=== PATIENT | female | born 1970 | race Hispanic/Latino ===

== ENCOUNTER 2017-08-16 04:34 | Emergency (ER) | payer SELFPAY | END 2017-08-16 05:38 | disposition home or self-care (01) | LOC: ERS 04:34 | DX: B37.3 Candidiasis of vulva and vagina (principal); I10 Essential (primary) hypertension | CPT/HCPCS: 99283 ==

== ENCOUNTER 2017-10-09 13:19 | Emergency (ER) | payer SELFPAY ==
[2017-10-09 13:45] LABS: #Eosinphils 0.3 thou/uL (0.0-0.7); #Lymphocytes 3.2 thou/uL (1.20-3.40); #Monocytes 0.8 thou/uL (0.11-0.59); #Neutrophils 6.8 thou/uL (1.40-6.50); %Basophils 0.1 % (0.0-1.0); %Eosinophils 2.7 % (0.0-10.0); %Lymphocytes 29.1 % (21.0-51.0); %Monocytes 7.5 % (0.0-10.0); %Neutrophils 60.6 % (42.0-75.0); Hemoglobin 11.9 g/dL (12.0-16.0); Mean Corpuscular HGB CONC 34.2 g/dL (32.0-36.0); Mean Corpuscular Hemoglobin 28.6 pg (27.0-31.0); Mean Corpuscular Volume 83.8 fl (81.0-99.0); Mean Platelet Volume 6.9 fL (7.4-10.4); Platelet Count 270 thou/uL (130-400); RBC Distribution Width 12.5 % (11.5-14.5); Red Blood Cell (RBC) Count 4.15 mill/uL (4.20-5.40); White Blood Cell (WBC) Count 11.1 thou/uL (4.8-10.8)
[2017-10-09 14:11] LABS: ALT (SGPT) 16 U/L (8-55); AST (SGOT) 13 U/L (5-34); Albumin 3.7 g/dL (3.5-5.0); Alkaline Phosphatase 86 U/L (40-150); Anion Gap 10 mmol/L (10-20); BUN (Urea Nitrogen) 14 mg/dL (7.0-18.7); Bilirubin, Total 0.3 mg/dL (0.2-1.2); Calc. Creatinine Clearance 0 mL/min (70-130); Calcium 8.6 mg/dL (7.8-10.44); Carbon Dioxide 25 mmol/L (22-29); Chloride 107 mmol/L (98-107); Estimated GFR-MDRD Greater than 90; Globulin 3.6 g/dL (2.4-3.5); Glucose 98 mg/dL (70-105); Potassium 3.9 mmol/L (3.5-5.1); Protein, Total 7.3 g/dL (6.0-8.3); Sodium 138 mmol/L (136-145)
[2017-10-09 14:19] LABS: Bilirubin Negative (Negative); Blood, Urine Negative (Negative); Clarity CLEAR (Clear); Glucose, Urine (Dipstick) Negative (Negative); Leukocyte Negative (Negative); Nitrite Negative (Negative); Protein, Urine (Dipstick) Negative (Neg-Trace); Specific Gravity, Urine 1.028 (1.002-1.036)
[2017-10-09] MEDS ORDERED: Fentanyl 100 MCG/2 ML VIAL ONE (15:11)
[2017-10-09 16:07] LABS: Pregnancy Test - Urine (BHCG) Negative (Negative)
[2017-10-09 16:08] LABS: Pregu Control Background? CLEAR/WHITE (CLR/WHITE); Pregu Control Bar Appear? YES (CONTROL BAR); Specific Gravity 1.028 (1.002-1.036)
--- NOTE | 2017-10-09 16:46 | CT ---
CT ABDOMEN AND PELVIS WITHOUT CONTRAST 10/09/17 HISTORY: Right flank pain and history of kidney stones. FINDINGS: The absence or oral and IV contrast reduces the sensitivity of the exam particularly for evaluation o f solid organs and bowel. The lung bases are clear. The liver demonstrates diffuse echogenicity compared to the spleen consiste nt with fatty infiltration. No calcified gallstones are seen. A normal appearing appendix is present. No free air or free fluid is seen in the abdomen or pelvis. There are few punctate calculi in the right kidney. No calculi seen in the left kidney, either ureter or the urinary bladder. No hydroureteronephrosis seen on either side. There is a 4 mm low density le gustavo in the right renal cortex likely a cyst. There is sigmoid diverticulosis. There is mild pericolonic inflammatory change adjacent to the sigmoi d colon and the pelvis. The uterus and ovaries are present. There is a 6 x 4 x 4.5 cm cystic mass arising from the left ovary . There are mild degenerative changes in the spine. No aneurysmal dilation of the abdominal aorta is se en. IMPRESSION: 1. Nonobstructing punctate right renal calculi. 2. Fatty liver. 3. Sigmoid diverticulosis with probable diverticulitis. 4. Left ovarian cystic mass measuring 6 x 4 x 4.5 cm. This could be evaluated with a pelvic ultr asound on a nonemergent basis. POS: POLINA
== END 2017-10-09 17:26 | disposition home or self-care (01) ==
LOC: ERS 13:19
DX: K57.92 Diverticulitis of intestine, part unspecified, without perforation or abscess without bleeding (principal); I10 Essential (primary) hypertension; Z87.442 Personal history of urinary calculi
CPT/HCPCS: 36415; 74176; 80053; 81003; 81025; 85025; 96361; 96374; J3010

== ENCOUNTER 2018-04-20 23:01 | Emergency (ER) | payer SELFPAY ==
[2018-04-20 23:27] LABS: #Eosinphils 0.2 thou/uL (0.0-0.7); #Lymphocytes 3.5 thou/uL (1.20-3.40); #Monocytes 0.6 thou/uL (0.11-0.59); %Basophils 0.1 % (0.0-1.0); %Eosinophils 2.1 % (0.0-10.0); %Monocytes 5.3 % (0.0-10.0); %Neutrophils 61.5 % (42.0-75.0); Mean Corpuscular HGB CONC 34.2 g/dL (32.0-36.0); Mean Corpuscular Hemoglobin 28.1 pg (27.0-31.0); Mean Corpuscular Volume 82.2 fL (78.0-98.0); Mean Platelet Volume 7.3 fL (7.4-10.4); Platelet Count 316 thou/uL (130-400); RBC Distribution Width 12.8 % (11.5-14.5); Red Blood Cell (RBC) Count 4.26 mill/uL (4.20-5.40); White Blood Cell (WBC) Count 11.3 thou/uL (4.8-10.8)
[2018-04-20 23:39] LABS: Bilirubin Negative (Negative); Blood, Urine Negative (Negative); Clarity CLEAR (Clear); Glucose, Urine (Dipstick) Negative (Negative); Leukocyte Negative (Negative); Nitrite Negative (Negative); Protein, Urine (Dipstick) Negative (Neg-Trace); Specific Gravity, Urine 1.031 (1.002-1.036); Urobilinogen 0.2 mg/dL (0.2-1.0); pH, Urine 5.5 (5.0-9.0)
[2018-04-20 23:48] LABS: ALT (SGPT) 14 U/L (8-55); AST (SGOT) 14 U/L (5-34); Albumin 4.1 g/dL (3.5-5.0); Alkaline Phosphatase 89 U/L (40-150); Anion Gap 13 mmol/L (10-20); BUN (Urea Nitrogen) 18 mg/dL (7.0-18.7); Bilirubin, Total 0.2 mg/dL (0.2-1.2); Calc. Creatinine Clearance 0 mL/min (70-130); Calcium 9.5 mg/dL (7.8-10.44); Carbon Dioxide 23 mmol/L (22-29); Chloride 105 mmol/L (98-107); Estimated GFR-MDRD 79; Globulin 3.9 g/dL (2.4-3.5); Glucose 113 mg/dL (70-105); Potassium 3.8 mmol/L (3.5-5.1); Sodium 137 mmol/L (136-145)
[2018-04-21 00:50] LABS: Pregnancy Test - Urine (BHCG) Negative (Negative); Pregu Control Background? CLEAR/WHITE (CLR/WHITE); Pregu Control Bar Appear? YES (CONTROL BAR); Specific Gravity 1.031 (1.002-1.036)
[2018-04-21] MEDS ORDERED: Ketorolac Tromethamine 30 MG/ML VIAL ONE (02:06)
--- NOTE | 2018-04-21 09:39 | ULT ---
PRELIMINARY REPORT/[facility]/EMERGENTY AFTER-HOURS PROCEDURE US Pelvis Complete, Transabdominal and US Pelvis, Transvaginal EXAM DATE/TIME: 04/21/2018 1:34 AM CLINICAL HISTORY: 48 years old, female; Pain; Pelvic pain; Prior surgery; Surgery date: 6+ months; Surgery type: Csecti on TECHNIQUE: Real-time transabdominal and transvaginal pelvic ultrasound (complete) with image documentation. [place]illa svaginal imaging was used for better evaluation of the endometrium and adnexa. COMPARISON: No relevant prior studies available. FINDINGS: Uterus/cervix: There are 2 uterine fibroids, the larger of which measures 1.2 cm. Trace fluid in the endometrial cavity. Normal endometrial stripe thickness. Right adnexa: 1.6 cm dominant follicle the right ovary. Right ovary otherwise normal with normal Dopp ler signal. Left adnexa: There are 2 left ovarian cysts, the larger of which measures 3 cm. Left ovary otherwise normal with normal Doppler signal. Free fluid: Physiologic amount of free fluid in the pelvis. IMPRESSION: 1. There are 2 left ovarian cysts, the larger of which measures 3 cm. 2. There are 2 uterine fibroids, the larger of which measures 1.2 cm. Thank you for allowing us to participate in the care of your patient. Dictated and Authenticated by: Nabil Mercado MD 04/21/2018 3:32 AM Central Time ([place] & [place]) FINAL REPORT TRANSABDOMINAL AND TRANSVAGINAL PELVIC ULTRASOUND WITH FOSTER SCALE AND COLOR FLOW AND SPECTRAL DOPPLER IMAGING: Date: 04/21/18 FINDINGS/IMPRESSION: I agree with the preliminary report given by Jaclyn. POS: POLINA
== END 2018-04-21 04:20 | disposition home or self-care (01) ==
LOC: ERS 23:01
DX: R10.30 Lower abdominal pain, unspecified (principal); I10 Essential (primary) hypertension
CPT/HCPCS: 36415; 76856; 80053; 81003; 81025; 85025; 93976; 96372; J1885

== ENCOUNTER 2019-07-19 20:07 | Inpatient (IN) | payer SELFPAY ==
[~2019-07-19 20:07] MED LIST: Iopamidol 370 76% 100 ML VIAL ONE
[2019-07-19 20:39] LABS: #Eosinphils 0.2 thou/uL (0.0-0.7); #Lymphocytes 3.6 thou/uL (1.20-3.40); #Monocytes 0.8 thou/uL (0.11-0.59); #Neutrophils 10.8 thou/uL (1.40-6.50); %Basophils 0.2 % (0.0-1.0); %Eosinophils 1.5 % (0.0-10.0); %Monocytes 5.1 % (0.0-10.0); %Neutrophils 70.2 % (42.0-75.0); Hemoglobin 13.3 g/dL (12.0-16.0); Mean Corpuscular HGB CONC 33.5 g/dL (32.0-36.0); Mean Corpuscular Hemoglobin 28.2 pg (27.0-31.0); Mean Corpuscular Volume 84.3 fL (78.0-98.0); Mean Platelet Volume 8.3 fL (7.4-10.4); Platelet Count 304 thou/uL (130-400); RBC Distribution Width 14.2 % (11.5-14.5); Red Blood Cell (RBC) Count 4.72 mill/uL (4.20-5.40); White Blood Cell (WBC) Count 15.4 thou/uL (4.8-10.8)
[2019-07-19] MEDS ORDERED: Morphine 4 MG/ML VIAL ONE ×2 (20:40→21:38)
[2019-07-19] MEDS ORDERED: Ondansetron PF 4 MG/2 ML Vial ONE (20:40)
[2019-07-19 21:01] LABS: ALT (SGPT) 17 U/L (8-55); AST (SGOT) 11 U/L (5-34); Albumin 4.2 g/dL (3.5-5.0); Alkaline Phosphatase 81 U/L (40-110); Anion Gap 14 mmol/L (10-20); BUN (Urea Nitrogen) 16 mg/dL (7.0-18.7); Bilirubin, Total 0.4 mg/dL (0.2-1.2); Calc. Creatinine Clearance 0 mL/min (70-130); Calcium 9.2 mg/dL (7.8-10.44); Carbon Dioxide 21 mmol/L (22-29); Chloride 105 mmol/L (98-107); Estimated GFR-MDRD 72; Globulin 3.8 g/dL (2.4-3.5); Glucose 122 mg/dL (70-105); Lipase 34 U/L (8-78); Potassium 3.7 mmol/L (3.5-5.1); Sodium 136 mmol/L (136-145)
--- NOTE | 2019-07-19 21:12 | CT ---
CT Abdomen Pelvis W Con: 07/19/2019 8:38 PM CLINICAL INFORMATION: Severe abdominal pain with history of kidney stones COMPARISON: 10/09/2017 TECHNIQUE: Multiple contiguous axial images were obtained and a CT of the abdomen and pelvis with IV contrast. C oronal and sagittal reformats were performed. FINDINGS: Lower Chest: within normal limits. Abdomen: Liver: within normal limits. Bile Ducts: Normal caliber. Gallbladder: No calcified gallstones. Normal caliber wall. Pancreas: within normal limits. Spleen: within normal limits. Adrenals: within normal limits. Kidneys: Small right renal cyst Pelvis: Reproductive Organs: There is a stable cyst in the left ovary measuring 4.6 cm in size. Ureters: within normal limits. Bladder: within normal limits. Peritoneum: No ascites or free air, no fluid collection. Bowel: Normal caliber. Scattered diverticula in the sigmoid colon. Stranding changes are seen surroun ding the sigmoid colon consistent with acute diverticulitis. Normal appendix. Mesentery and Retroperitoneum: No enlarged mesenteric or retroperitoneal lymph nodes. Vessels: Normal. Abdominal Wall: within normal limits. Bones: Within normal limits IMPRESSION: 1. Acute diverticulitis 2. Left ovarian cyst. 3. Right renal cyst
[2019-07-19 21:16] LABS: Bilirubin Negative (Negative); Blood, Urine Negative (Negative); Clarity Clear (Clear); Glucose, Urine (Dipstick) Normal (Negative); Leukocyte Negative Leu/uL (Negative); Nitrite Negative (Negative); Protein, Urine (Dipstick) 10 mg/dL (Neg-Trace); Urobilinogen Normal mg/dL (Less than 2)
[2019-07-19 21:18] LABS: Pregnancy Test - Urine (BHCG) Negative (Negative); Pregu Control Background? CLEAR/WHITE (CLR/WHITE); Pregu Control Bar Appear? YES (CONTROL BAR); Specific Gravity 1.025 (1.002-1.036)
[2019-07-19] MEDS ORDERED: metroNIDAZOLE 500 MG/100 ML BAG ONE (21:26)
--- NOTE | 2019-07-19 22:53 | HP ---
PRIMARY CARE PROVIDER: [facility] [place], [place]. CHIEF COMPLAINT: Abdominal pain. HISTORY OF PRESENT ILLNESS: This is a 49-year-old female, who presents to [facility] Emergency Department complaining of approximately 2- to 3-day history of generalized abdominal pain mainly localized into the right lower quadrant, rating at 10/10 and cramping. Patient denied any trauma injury, family members with similar symptoms, or recent travel history. Patient admitted to associated nausea and vomiting x4 episodes with associated chills and low-grade fever, not documented or taken at home. Patient took [id number] pain medication without relief of her symptoms. Patient denied any hematemesis, melena, or diarrhea. Patient denied any dysuria, hematuria, recent surgical procedures, or changes to her dietary regimen. In the emergency room, patient underwent general evaluation, including CT imaging of the abdomen and pelvis showing evidence of acute diverticulitis. Patient received IV Levaquin and Flagyl in addition to morphine sulfate and IV fluids. Patient also received Zofran with mild relief of her nausea. PAST MEDICAL HISTORY: 1. Hypertension. 2. History of renal lithiasis. PAST SURGICAL HISTORY: Status post section x3. CURRENT MEDICATION: Patient is unsure of her medication regimen and will need to be obtained by the family. ALLERGIES: NO KNOWN DRUG ALLERGIES. FAMILY HISTORY: No inheritable diseases per patient report. SOCIAL HISTORY: Resides in the [place], [place] area. No current alcohol, tobacco, or illicit drug use. Functional of all activities of daily living. REVIEW OF SYSTEMS: CONSTITUTIONAL: Negative for weight loss or gain, ability to conduct usual activities. SKIN: Negative for rash, itching. EYES: Negative for double vision, pain. ENT/MOUTH: Negative for nose bleeding, neck stiffness, pain, tenderness. CARDIOVASCULAR: Negative for palpitations, dyspnea on exertion, orthopnea. RESPIRATORY: Negative for shortness of breath, wheezing, cough, hemoptysis, fever or night sweats. GASTROINTESTINAL: Negative for poor appetite, abdominal pain, heartburn, nausea, vomiting, constipation, or diarrhea. GENITOURINARY: Negative for urgency, frequency, dysuria, nocturia. MUSCULOSKELETAL: Negative for pain, swelling. NEUROLOGIC/PSYCHIATRIC: Negative for anxiety, depression. ALLERGY/IMMUNOLOGIC: Negative for skin rash, bleeding tendency. Otherwise, negative, except as stated per HPI. PHYSICAL EXAMINATION: VITAL SIGNS: On admission, blood pressure 157/99, pulse 110, respiratory rate 19, temperature 99.2 degrees Fahrenheit, and O2 saturation 98% on room air. GENERAL APPEARANCE: This is a 49-year-old female, alert and oriented x3, pleasant, responsive, in mild distress. HEENT: Pupils are equal, round, and reactive to light and accommodation. Extraocular muscles are intact. No scleral icterus. Mild conjunctival injection. Nares are patent. OP is clear. Teeth in fair repair. NECK: Supple. No cervical adenopathy. No thyromegaly. No carotid bruits. No JVD appreciated. Cervical spine with full active and passive range of motion. No meningeal signs noted. CHEST: Lungs are clear to auscultation bilaterally. CARDIOVASCULAR: S1, S2 with tachycardia. No murmur, rub, or gallop appreciated. ABDOMEN: Obese with tenderness to palpation diffusely. No rebound or guarding noted. Bowel sounds are positive in all 4 quadrants. No palpable mass. EXTREMITIES: Warm and dry with fair turgor. No clubbing, cyanosis, or asymmetric edema appreciated. Pulses palpable distally at the dorsalis pedis, posterior tibial, and popliteal arteries bilaterally. Capillary refill less than 2 seconds. NEUROLOGIC: Cranial nerves 2 through 12 are grossly intact. No focal or lateralizing signs appreciated. PERTINENT LABORATORY AND X-RAY FINDINGS: Sodium 136, potassium 3.7, chloride 105, CO2 of 21, BUN 16, creatinine 0.84, estimated GFR 72, glucose 122, lactic acid level 1.4, and calcium 9.2. LFTs within normal limits. Lipase 34. CBC showed a white blood cell count of 15.4, hemoglobin 13, hematocrit 40, and platelet count 304 with 70% neutrophils. Urinalysis negative. Urine, beta hCG negative dated 07/19/2019. CT of the abdomen and pelvis dated 07/19/2019, showed acute diverticulitis in the sigmoid colon. ASSESSMENT/PLAN: 1. Acute diverticulitis. Patient will be admitted to the medical floor. We will continue Levaquin 750 mg IV q.24 hours with additional Flagyl 500 mg IV q.8 hours. Continue intravenous normal saline 125 mL/h. Pain control with Toradol 30 mg IV q.6 hours. Clear liquid diet. Continue serial abdominal exams. 2. Nausea and vomiting secondarily to acute diverticulitis. We will continue IV fluids as outlined previously. Antiemetics with Zofran 4 mg IV q.6 hours p.r.n. Clear liquids as tolerated. 3. Abdominal pain, generalized. Secondarily to acute diverticulitis. See #1 above for management. 4. Sinus tachycardia secondarily to acute diverticulitis. We will continue IV fluids as outlined previously. Continue general supportive management. 5. Prophylaxis. SCDs while in bed. Pepcid 20 mg IV b.i.d. 6. Code status. Full. Surrogate medical decision maker is patient's spouse. Job ID: [id number]
[2019-07-19] MEDS ORDERED: Ondansetron ODT 4 MG TAB SL PRN (23:08)
[2019-07-19] MEDS ORDERED: Ondansetron PF 4 MG/2 ML Vial IVP PRN ×2 (23:08→23:13)
[2019-07-19] MEDS ORDERED: Morphine 4 MG/ML VIAL SLOW IVP PRN (23:09)
[2019-07-19] MEDS ORDERED: Ondansetron ODT 4 MG TAB PO PRN (23:13)
[2019-07-19] MEDS ORDERED: Acetaminophen 500 MG TAB PO PRN (23:13)
[2019-07-19] MEDS: Sodium Chloride 0.9% 1,000 ML IV SCH ×2 (23:28→23:39)
[2019-07-19] MEDS ORDERED: Ketorolac Tromethamine 30 MG/ML VIAL IVP SCH (23:30)
[2019-07-19 23:51] VITALS: BMI 33.4
[2019-07-20] MEDS: Sodium Chloride 0.9% 1,000 ML IV SCH ×4 (00:51→22:38)
[2019-07-20] MEDS: metroNIDAZOLE 500 MG in Premix Bag 1 BAG IVPB SCH ×3 (04:59→20:21)
[2019-07-20] MEDS: Ketorolac Tromethamine 30 MG/ML VIAL IVP SCH ×4 (04:59→22:38)
[2019-07-20 05:27] LABS: Band 13 % (5-11); Hemoglobin 11.1 g/dL (12.0-16.0); Lymphocytes 18 % (21-51); MDiff Complete? YES; Mean Corpuscular HGB CONC 32.4 g/dL (32.0-36.0); Mean Corpuscular Hemoglobin 27.3 pg (27.0-31.0); Mean Corpuscular Volume 84.3 fL (78.0-98.0); Mean Platelet Volume 8.2 fL (7.4-10.4); Monocytes 4 % (0-10); Neutrophil 65 % (42-75); Platelet Count 232 thou/uL (130-400); Platelet Morphology Comment Appears Adequate; RBC Distribution Width 13.9 % (11.5-14.5); Red Blood Cell (RBC) Count 4.06 mill/uL (4.20-5.40); White Blood Cell (WBC) Count 11.2 thou/uL (4.8-10.8)
[2019-07-20 05:44] LABS: ALT (SGPT) 13 U/L (8-55); AST (SGOT) 10 U/L (5-34); Albumin 3.4 g/dL (3.5-5.0); Alkaline Phosphatase 69 U/L (40-110); Anion Gap 9 mmol/L (10-20); BUN (Urea Nitrogen) 14 mg/dL (7.0-18.7); Bilirubin, Total 0.3 mg/dL (0.2-1.2); Calc. Creatinine Clearance 138 mL/min (70-130); Carbon Dioxide 25 mmol/L (22-29); Chloride 108 mmol/L (98-107); Estimated GFR-MDRD Greater than 90; Glucose 97 mg/dL (70-105); Potassium 3.9 mmol/L (3.5-5.1); Protein, Total 6.4 g/dL (6.0-8.3); Sodium 138 mmol/L (136-145)
[2019-07-20] MEDS ORDERED: metroNIDAZOLE 500 MG in Premix Bag 1 BAG IVPB SCH (06:00)
[2019-07-20] MEDS: Famotidine/PF 20 mg/2ml Vial SLOW IVP SCH ×2 (07:56→20:22)
[2019-07-20] MEDS ORDERED: FLU VACC QS2019-20(6MOS UP)/PF 60 MCG/0.5 ML SYRINGE IM ONE (09:00)
--- NOTE | 2019-07-20 10:59 | PDOC.HOSPP ---
- Subjective Encounter Date: 07/20/19 Encounter Time: 10:57 Subjective: mild to moderate LLQ pain - Objective Vital Signs & Weight: Vital Signs (12 hours) Temp Pulse Resp BP BP Pulse Ox 07/20/19 07:56 95 07/20/19 07:51 97.9 F 69 17 109/67 95 07/20/19 04:55 97.9 F 77 16 118/77 92 L 07/20/19 00:03 95 07/19/19 23:49 98.6 F 84 18 146/91 H 94 L Weight Weight 171 lb 3.2 oz Result Diagrams: 07/20/19 04:49 07/20/19 04:49 Hospitalist ROS - Medication Medications: Active Medications Generic Name Dose Route Start Last Admin Trade Name Sachi PRN Reason Stop Dose Admin Famotidine 20 mg 07/20/19 09:00 07/20/19 07:56 Pepcid SLOW IVP 20 mg Q12HR NATALIE Administration Sodium Chloride 1,000 mls @ 120 mls/hr 07/19/19 23:08 07/20/19 00:51 Normal Saline 0.9% IV 07/20/19 11:00 Not Given .Q8H20M NATALIE Metronidazole 500 mg/ Device 100 mls @ 100 mls/hr 07/20/19 06:00 07/19/19 23: 59 IVPB 07/20/19 11:00 Not Given Q8HR NATALIE Metronidazole 500 mg/ Device 100 mls @ 100 mls/hr 07/20/19 06:00 07/20/19 04: 59 IVPB 100 mls Q8HR NATALIE Administration Sodium Chloride 1,000 mls @ 125 mls/hr 07/19/19 23:13 07/20/19 07:56 Normal Saline 0.9% IV 1,000 mls .Q8H NATALIE Administration Ketorolac Tromethamine 30 mg 07/20/19 06:00 07/20/19 04:59 Toradol IVP 07/25/19 06:01 30 mg Q6HR NATALIE Administration - Exam General Appearance: awake alert Neck: supple, no JVD Heart: RRR, no murmur Respiratory: CTAB Gastrointestinal: soft, normal bowel sounds, tender to palpation Gastrointestinal - other findings: in LLQ Extremities: no edema Hosp A/P (1) Diverticulitis large intestine Code(s): K57.32 - DVTRCLI OF LG INT W/O PERFORATION OR ABSCESS W/O BLEEDING Status: Acute Qualifiers: Diverticulitis bleeding: without bleeding Diverticulitis complication: with perforation and abscess Qualified Code(s): K57.20 - Diverticulitis of large intestine with perforation and abscess without bleeding (2) Abdominal pain Code(s): R10.9 - UNSPECIFIED ABDOMINAL PAIN Status: Acute Qualifiers: Abdominal location: left lower quadrant Qualified Code(s): R10.32 - Left lower quadrant pain (3) HTN (hypertension) Code(s): I10 - ESSENTIAL (PRIMARY) HYPERTENSION Status: Chronic Qualifiers: Hypertension type: essential hypertension Qualified Code(s): I10 - Essential (primary) hypertension - Plan cont iv quinalone/metranidazole cont analgesia PAOLA
[2019-07-21] MEDS: Sodium Chloride 0.9% 1,000 ML IV SCH ×3 (05:03→23:59)
[2019-07-21] MEDS: Ketorolac Tromethamine 30 MG/ML VIAL IVP SCH ×4 (05:03→23:57)
[2019-07-21] MEDS: metroNIDAZOLE 500 MG in Premix Bag 1 BAG IVPB SCH ×3 (05:04→22:50)
[2019-07-21] MEDS: Famotidine/PF 20 mg/2ml Vial SLOW IVP SCH ×2 (08:38→21:08)
--- NOTE | 2019-07-21 13:30 | PDOC.HOSPP ---
- Subjective Encounter Date: 07/21/19 Encounter Time: 12:00 Subjective: mild abd pain, mroe generalized and not localized, on CLD. afebrile, no wbcs. - Objective Vital Signs & Weight: Vital Signs (12 hours) Temp Pulse Resp BP Pulse Ox 07/21/19 11:31 98.7 F 71 16 142/87 H 95 07/21/19 08:00 93 L 07/21/19 07:27 98.2 F 76 18 129/77 93 L Weight Weight 171 lb 3.2 oz I&O: 07/20/19 07/21/19 07/22/19 06:59 06:59 06:59 Intake Total 1905 Balance 1905 Result Diagrams: 07/20/19 04:49 07/20/19 04:49 Hospitalist ROS - Medication Medications: Active Medications Generic Name Dose Route Start Last Admin Trade Name Freq PRN Reason Stop Dose Admin Famotidine 20 mg 07/20/19 09:00 07/21/19 08:38 Pepcid SLOW IVP 20 mg Q12HR NATALIE Administration Levofloxacin 750 mg/ Device 150 mls @ 100 mls/hr 07/20/19 21:00 07/20/19 20: 21 IVPB 150 mls Q24HR NATALIE Administration Metronidazole 500 mg/ Device 100 mls @ 100 mls/hr 07/20/19 06:00 07/21/19 05: 04 IVPB 100 mls Q8HR NATALIE Administration Sodium Chloride 1,000 mls @ 125 mls/hr 07/19/19 23:13 07/21/19 05:03 Normal Saline 0.9% IV Not Given .Q8H NATALIE Ketorolac Tromethamine 30 mg 07/20/19 06:00 07/21/19 05:03 Toradol IVP 07/25/19 06:01 30 mg Q6HR NATALIE Administration Ondansetron HCl 4 mg 07/19/19 23:13 07/20/19 15:47 Zofran Odt PO 4 mg Q6H PRN Administration Nausea/Vomiting Ondansetron HCl 4 mg 07/19/19 23:13 07/20/19 22:38 Zofran IVP 4 mg Q6H PRN Administration Nausea/Vomiting - Exam General Appearance: awake alert Eye: PERRL ENT: normocephalic atraumatic Neck: supple Heart: RRR, normal peripheral pulses Respiratory: CTAB, normal chest expansion Gastrointestinal: soft, non-tender, non-distended, normal bowel sounds Neurological: no focal deficits Hosp A/P - Plan (1) Diverticulitis large intestine cont iv quinalone/metranidazole cont analgesia (2) Abdominal pain -pain more generalized today than jsut at LLQ (3) HTN (hypertension) Code(s): I10 - ESSENTIAL (PRIMARY) HYPERTENSION Status: Chronic Qualifiers: Hypertension type: essential hypertension Qualified Code(s): I10 - Essential (primary) hypertension advancing the diet if cont'd improvement, plan for dc in am.
[2019-07-22] MEDS: metroNIDAZOLE 500 MG in Premix Bag 1 BAG IVPB SCH ×2 (05:40→13:50)
[2019-07-22] MEDS: Ketorolac Tromethamine 30 MG/ML VIAL IVP SCH ×2 (05:40→11:38)
[2019-07-22 06:08] LABS: #Eosinphils 0.1 thou/uL (0.0-0.7); #Lymphocytes 3.3 thou/uL (1.20-3.40); #Monocytes 0.5 thou/uL (0.11-0.59); #Neutrophils 4.9 thou/uL (1.40-6.50); %Basophils 0.1 % (0.0-1.0); %Eosinophils 1.7 % (0.0-10.0); %Lymphocytes 37.1 % (21.0-51.0); %Monocytes 5.3 % (0.0-10.0); %Neutrophils 55.9 % (42.0-75.0); Hemoglobin 12.2 g/dL (12.0-16.0); Mean Corpuscular HGB CONC 32.8 g/dL (32.0-36.0); Mean Corpuscular Hemoglobin 27.6 pg (27.0-31.0); Mean Corpuscular Volume 84.3 fL (78.0-98.0); Platelet Count 296 thou/uL (130-400); RBC Distribution Width 13.6 % (11.5-14.5); White Blood Cell (WBC) Count 8.9 thou/uL (4.8-10.8)
[2019-07-22 06:21] LABS: Chloride 107 mmol/L (98-107); Potassium 3.8 mmol/L (3.5-5.1); Sodium 137 mmol/L (136-145)
[2019-07-22 06:22] LABS: Calcium 8.9 mg/dL (7.8-10.44); Glucose 89 mg/dL (70-105)
[2019-07-22 06:24] LABS: Anion Gap 11 mmol/L (10-20); Carbon Dioxide 23 mmol/L (22-29)
[2019-07-22 06:26] LABS: BUN (Urea Nitrogen) 5 mg/dL (7.0-18.7); Calc. Creatinine Clearance 132 mL/min (70-130); Estimated GFR-MDRD Greater than 90
[2019-07-22] MEDS: Sodium Chloride 0.9% 1,000 ML IV SCH (08:18)
[2019-07-22] MEDS: Famotidine/PF 20 mg/2ml Vial SLOW IVP SCH (08:19)
[2019-07-22 11:43] VITALS: BP 149/84; TEMP 98.2
--- NOTE | 2019-07-22 12:14 | PDOC.HOSPP ---
- Subjective Encounter Date: 07/22/19 Encounter Time: 12:12 Subjective: Ms. Del Rio was seen today in follow-up of diverticulitis. she says she feels fine. she ate breakfast and has no complaints. - Objective Vital Signs & Weight: Vital Signs (12 hours) Temp Pulse Resp BP Pulse Ox 07/22/19 11:00 98.2 F 72 16 149/84 H 96 07/22/19 07:44 98.1 F 86 16 157/92 H 96 07/22/19 05:44 98.4 F 80 20 96 Weight Weight 171 lb 3.2 oz I&O: 07/21/19 07/22/19 07/23/19 06:59 06:59 06:59 Intake Total 1905 240 Balance 1905 240 Result Diagrams: 07/22/19 05:44 07/22/19 05:44 Hospitalist ROS - Medication Medications: Active Medications Generic Name Dose Route Start Last Admin Trade Name Freq PRN Reason Stop Dose Admin Famotidine 20 mg 07/20/19 09:00 07/22/19 08:19 Pepcid SLOW IVP 20 mg Q12HR NATALIE Administration Levofloxacin 750 mg/ Device 150 mls @ 100 mls/hr 07/20/19 21:00 07/21/19 21: 08 IVPB 150 mls Q24HR NATALIE Administration Metronidazole 500 mg/ Device 100 mls @ 100 mls/hr 07/20/19 06:00 07/22/19 05: 40 IVPB 100 mls Q8HR NATALIE Administration Sodium Chloride 1,000 mls @ 125 mls/hr 07/19/19 23:13 07/22/19 08:18 Normal Saline 0.9% IV 1,000 mls .Q8H NATALIE Administration Ketorolac Tromethamine 30 mg 07/20/19 06:00 07/22/19 11:38 Toradol IVP 07/25/19 06:01 Not Given Q6HR NATALIE Ondansetron HCl 4 mg 07/19/19 23:13 07/20/19 15:47 Zofran Odt PO 4 mg Q6H PRN Administration Nausea/Vomiting Ondansetron HCl 4 mg 07/19/19 23:13 07/20/19 22:38 Zofran IVP 4 mg Q6H PRN Administration Nausea/Vomiting - Exam Eye: PERRL Heart: RRR, no murmur, no gallops, no rubs, normal peripheral pulses Respiratory: CTAB, no wheezes, no rales, no ronchi, normal chest expansion, no tachypnea, normal percussion Gastrointestinal: soft, non-tender, non-distended, normal bowel sounds, no palpable masses, no hepatomegaly Extremities: no cyanosis, no edema Hosp A/P (1) Diverticulitis large intestine Code(s): K57.32 - DVTRCLI OF LG INT W/O PERFORATION OR ABSCESS W/O BLEEDING Status: Acute Qualifiers: Diverticulitis bleeding: without bleeding Diverticulitis complication: with perforation and abscess Qualified Code(s): K57.20 - Diverticulitis of large intestine with perforation and abscess without bleeding (2) HTN (hypertension) Code(s): I10 - ESSENTIAL (PRIMARY) HYPERTENSION Status: Chronic Qualifiers: Hypertension type: essential hypertension Qualified Code(s): I10 - Essential (primary) hypertension - Plan * Diverticulitis- improved * She is stable for discharge home * Follow-up at the [facility] clinic in 2-3 weeks.
--- NOTE | 2019-07-22 13:02 | DIS ---
DATE OF ADMISSION: 07/19/2019 DATE OF DISCHARGE: 07/22/2019 PRIMARY CARE PHYSICIAN: The patient's primary care is at the [facility]. DISCHARGE DISPOSITION: Home. DISCHARGE DIAGNOSES: 1. Diverticulitis. 2. Hypertension. DISCHARGE MEDICATIONS: Include: 1. Ciprofloxacin 500 mg p.o. three times a day. 2. Flagyl 500 mg p.o. three times a day. 3. Lisinopril/hydrochlorothiazide 20/12.5 one tablet daily. IMAGING DONE DURING THE HOSPITAL STAY: The patient had a CT scan of the abdomen and pelvis demonstrating evidence for acute diverticulitis, in which there was some stranding changes seen in the sigmoid colon. No evidence of any abscess. CODE STATUS: Full code. ALLERGIES: NO KNOWN DRUG ALLERGIES. HOSPITAL COURSE: Ms. Del Rio is a very pleasant 49-year-old female, who was admitted to the hospital with abdominal pain. She was evaluated in the ER and had a CT scan of the abdomen and pelvis performed. The findings were consistent with acute diverticulitis. She was placed on IV Levaquin and Flagyl. She improved over the course of the next couple of days. At the time of discharge, she was afebrile. Abdominal pain had completely resolved. She was tolerating a solid diet, and as such, she is being discharged home. She is to follow up with her primary care physician and the [facility] in approximately 2 weeks as availability permits. Job ID: [id number]
== END 2019-07-22 15:04 | disposition home or self-care (01) | DRG 392 ==
LOC: ERS 20:07 → T4-B 22:04
PROVIDERS: ADMIT Family Medicine; ATTEND Family Medicine
DX: K57.92 Diverticulitis of intestine, part unspecified, without perforation or abscess without bleeding (principal); I10 Essential (primary) hypertension; R00.0 Tachycardia, unspecified; Z87.442 Personal history of urinary calculi
CPT/HCPCS: 36415; 74177; 80048; 80053; 81003; 81025; 83605; 83690; 85007; 85025; 85027; 96361; 96365; 96368; 96375; 96376; J1885; J1956; J2270; J2405; Q0162; Q9967; S0028

== ENCOUNTER 2021-01-11 09:32 | Emergency (ER) | payer SELFPAY ==
[2021-01-11] MEDS ORDERED: Acetaminophen 500 MG TAB ONE (10:11)
[2021-01-11 19:04] LABS: SARS-CoV-2 PCR by NAA Not Detected (NotDetected)
== END 2021-01-11 10:36 | disposition home or self-care (01) ==
LOC: ERS 09:32
DX: R05 Cough (principal); Z20.822 Contact with and (suspected) exposure to COVID-19; I10 Essential (primary) hypertension
CPT/HCPCS: 71045; U0003; U0005